=== PATIENT | male | born 1970 | race Caucasian/White ===

== ENCOUNTER 2022-09-20 09:05 | Emergency (ER) | payer OTHER ==
[~2022-09-20] VITALS: Ht 180.3 cm; Wt 83.9 kg
[2022-09-20] MEDS ORDERED: CHLORDIAZEPOXID25 MG PO (13:04)
[2022-09-20] MEDS ORDERED: ONDANSETRON ODT8 MG PO (13:04)
--- NOTE | 2022-09-22 13:10 | EKG ---
[facility] [address] [place] [address] S[address] Sinus tachycardia Nonspecific ST abnormality Abnormal ECG When compared with ECG of 20-SEP-2022 09:11, (Unconfirmed) Minimal criteria for Inferior infarct are no longer present Confirmed by MAEVE XIAO MD ([id number]) on 09/22/2022 1:10:07 PM Electronically Signed By: MAEVE XIAO MD 09/22/22 1310 PATIENT NAME: CHACHO HERMOSILLO Electrocardiogram DATE OF : 66 PHYSICIAN: MAEVE XIAO MD REPORT #: [id number] REPORT IS CONFIDENTIAL AND NOT TO BE RELEASED WITHOUT AUTHORIZATION
== END 2022-09-20 14:26 | disposition home or self-care (01) ==
LOC: ED 09:05
DX: F10.129 Alcohol abuse with intoxication, unspecified (principal); I10 Essential (primary) hypertension; Z20.822 Contact with and (suspected) exposure to COVID-19; Y90.9 Presence of alcohol in blood, level not specified
CPT/HCPCS: 36415; 70450; 71045; 80053; 81001; 84484; 85025; 85060; 87088; 87502; 93005; 96374; 99285-25; A9270; G0480; J2060; J7030; U0003

== ENCOUNTER 2022-11-18 21:11 | Emergency (ER) | payer OTHER ==
[~2022-11-18] VITALS: Ht 180.3 cm; Wt 83.9 kg
[~2022-11-18 21:11] MED LIST: CHLORDIAZEPOXID25 MG PO; ONDANSETRON ODT8 MG PO
--- OUTSIDE RECORDS SUMMARY | 2022-11-18 21:14 | XMS ---
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 ENorm VISIT COUNT (12 MO.) 2 [facility] [place] TOTAL 2 NOTE: Visits indicate total known visits. ED/UCC VISIT TRACKING (12 MO.) 11/18/2022 21:11 [facility] [place] TYPE: Emergency COMPLAINT: - FALL 09/20/2022 09:06 [facility] [place] TYPE: Emergency COMPLAINT: - CHEST PAIN DIAGNOSES: - Alcohol abuse with intoxication, unspecified - Presence of alcohol in blood, level not specified - Chest pain, unspecified - Essential (primary) hypertension - Contact with and (suspected) exposure to COVID-19 INPATIENT VISIT TRACKING (12 MO.) No inpatient visits to display in this time frame [email or web address]
== END 2022-11-19 00:38 | disposition home or self-care (01) ==
LOC: ED 21:11
DX: S01.01XA Laceration without foreign body of scalp, initial encounter (principal); F10.129 Alcohol abuse with intoxication, unspecified; I10 Essential (primary) hypertension; Z23 Encounter for immunization; Z86.73 Personal history of transient ischemic attack (TIA), and cerebral infarction without residual deficits; Z79.899 Other long term (current) drug therapy; Y90.8 Blood alcohol level of 240 mg/100 ml or more; W18.30XA Fall on same level, unspecified, initial encounter
CPT/HCPCS: 36415; 70450; 71045; 71046; 72125; 80053; 80168; 85025; 90471; 90714; 96374; 99284-25; G0480; J2405